=== PATIENT | female | born 1970 | race Caucasian/White ===

== ENCOUNTER 2018-03-26 11:02 | Emergency (ER) | payer MEDICAID ==
--- NOTE | 2018-03-26 12:03 | EDPHY ---
General Time Seen by Provider: 03/26/18 11:30 Narrative: CHIEF COMPLAINT: Lip laceration HISTORY OF PRESENT ILLNESS: Patient presents by private vehicle with complaints of lip laceration. She says she was working with T-bar outside just prior to arrival when "it snapped off and hit me in the face." She says she sustained a laceration to the upper lip the communicates through the lip. She did not lose consciousness. She has pain only at the site of injury. No headache. No nausea vomiting. No neck pain or stiffness. No difficulty with vision or ambulation. She has no injury elsewhere. She has moderate bleeding that stopped with pressure. She has some pain at the site but no dental pain. No difficulty opening closing her mouth. She feels that her teeth are in normal alignment. She does not know when her last Tdap was administered. No other associated complaints or modifying factors. TIME OF INJURY: Less than 1 hr ago TETANUS STATUS: Uncertain MEDICAL/SURGICAL/SOCIAL HISTORY: Uncomplicated. No use of anticoagulants. Works here as a [place] locally. Lives independently. REVIEW OF SYSTEMS: Ten systems reviewed and are negative unless otherwise noted in the HPI EXAMINATION General Appearance: Alert, no distress. Conversing appropriately Head: normocephalic, atraumatic. No Sandoval sign. No raccoon eyes. No signs of trauma aside from the lip laceration. ENT: No dental fractures. Airway widely patent. There is a laceration of the upper gumline just above the central and right lateral incisor measuring 1 cm in length. There is laceration of the upper lip involving the philtrum measuring 1.25 cm and without involvement of the vermilion border. No active bleeding. No foreign body. No trismus. Cardiovascular: Pulses normal throughout. Brisk cap refill Neurological: GCS 15. A&O, sensory symmetric, strength symmetric Skin: Warm and dry, no rash. Lacerations as above. Extremities: Nontender, no pedal edema DIFFERENTIAL DIAGNOSES: Including but not limited to lip laceration, gumline laceration, dental fracture , alveolar ridge fracture MDM: 11:30 a.m. Laceration to the philtrum that does communicate with the labial mucosa and a 2nd laceration of the alveolar ridge on the upper teeth. No involvement of the vermilion border. There is no dental fracture. No obvious fracture to the alveolar ridge. She has no trismus. Her teeth are in alignment. No evidence of mandibular fracture. Tetanus will need to be updated. I have anesthetize the wound. No indication for CT scan of the head by [place] CT head rules or clinical evaluation. 12:00 p.m. Both lacerations have been repaired without difficulty. We discussed wound care including oral rinse. We discussed following up here in 5-7 days for the external suture removal. We discussed follow up with dentist and I provided the on-call maxillofacial surgeon given that she does have injury to the mucosa. We discussed ED precautions. I have answered all her questions. She is well-appearing and discharged home stable condition per PROCEDURE: Laceration repair, 1. Consent: Verbal Location: Upper lip philtrum. No vermilion border injury Length of repair: 1.25 cm Complexity: Simple Layer involvement: Single Anesthesia: Local. 0.5% Marcaine without epinephrine, 3 mL Irrigation: Extensive Debridement: None Procedure description: Following good anesthesia, the wound was copiously irrigated. Wound bed was explored with a sterile glove, and there is no foreign body noted. Wound borders were approximated well with good hemostasis. Tolerated well without complication. Suture/Staple material: 6-0 Prolene, 2 simple interrupted sutures Wound care: Routine as discussed Suture/Staple removal: 5-7 Days PROCEDURE: Laceration repair, 2. Consent: Verbal Location: Upper gumline Length of repair: 1 cm Complexity: Simple Layer involvement: Single Anesthesia: 0.5% Marcaine plain, 2 mL Irrigation: Extensive Debridement: None Procedure description: Following good anesthesia, the wound was copiously irrigated. Wound bed was explored with a sterile glove, and there is no foreign body noted. Wound borders were approximated well with good hemostasis. Tolerated well without complication. Suture/Staple material: 5-0 fast-absorbing plain gut, 2 Wound care: Routine as discussed Suture/Staple removal: No removal necessary SUPERVISION: This patient was independently evaluated without direct involvement of or examination by the attending physician. ED Precautions: Worsening pain. Erythema, edema, cyanosis, pallor, paresthesia or anesthesia. - History Smoking Status: Former smoker - Objective Vital Signs: Initial Vital Signs Temperature (C) 98.1 F 03/26/18 11:06 Heart Rate 64 03/26/18 11:06 Respiratory Rate 16 03/26/18 11:06 Blood Pressure 108/69 03/26/18 11:06 O2 Sat (%) 95 03/26/18 11:06 O2 Delivery Mode Room Air Allergies/Adverse Reactions: No Known Allergies Allergy (Verified 03/26/18 11:05) Home Medications: Medication Instructions Recorded Chlorhexidine Gluconate [Peridex 15 ml PO BID@0900,2100 #1 btl 03/26/18 oral soln (*)] Departure - Departure Disposition: Home, Routine, Self-Care Clinical Impression: Facial laceration Qualifiers: Encounter type: initial encounter Qualified Code(s): S01.81XA - Laceration without foreign body of other part of head, initial encounter Laceration of upper gum Qualifiers: Encounter type: initial encounter Qualified Code(s): S01.512A - Laceration without foreign body of oral cavity, initial encounter Condition: Good Instructions: Care For Your Stitches (ED), Laceration (ED), Care For Your Absorbable Stitches (ED) Additional Instructions: 1. Ice to affected area daily as needed 2. Soft the quit diet for the next 72 hr 3. Oral rinse as prescribed as needed. You may substitute [id number] rinse if needed 4. Contact your dentist and oral surgeon for definitive care 5. Return here in 5-7 days for suture removal Referrals: SERGIO CROSS [Primary Care Provider] - As per Instructions Mao Juarez DDS [Doctor of Dental Surgery] - As per Instructions Prescriptions: Chlorhexidine Gluconate [Peridex oral soln (*)] 15 ml PO BID@0900,2100 #1 btl
[2018-03-26] MEDS ORDERED: TDAP ADULT 0.5 ML INJ (BOOSTRIX) IM ONE (12:05)
[2018-03-26 12:21] VITALS: BP 112/75
== END 2018-03-26 12:21 | disposition home or self-care (01) ==
PROC: 0CQ0XZZ Repair Upper Lip, External Approach (ICD-10-PCS; principal; 2018-03-26)
DX: S01.81XA Laceration without foreign body of other part of head, initial encounter (principal); S01.512A Laceration without foreign body of oral cavity, initial encounter; Z23 Encounter for immunization; W20.8XXA Other cause of strike by thrown, projected or falling object, initial encounter; Y92.9 Unspecified place or not applicable; Z87.891 Personal history of nicotine dependence